=== PATIENT | female | born 1990 | race Caucasian/White ===

== ENCOUNTER 2021-02-18 23:21 | Emergency (ER) | payer OTHER ==
[2021-02-19 00:15] LABS: BASOPHIL 0.3 % (0-2); EOSINOPHIL 0.7 % (0-5); HGB 13.3 g/dl (12.5-16.0); LYMPHOCYTE 11.6 % (15-48); MCH 32.2 pg (25.0-31.0); MCHC 33.3 g/dL (32.0-36.0); MCV 96.9 fL (78.0-100.0); MONOCYTE 5.9 % (0-12); MPV 10.5 fL (6.0-9.5); NEUTROPHIL 81.2 % (41-80); NRBC 0; PLT 241 K/uL (150-400); RBC 4.13 M/uL (4.20-5.40); RDW 12.3 % (11.5-14.0); WBC 13.6 K/uL (4.0-10.5)
[2021-02-19 00:31] LABS: BUN/CREAT RATIO (CALC) 12.6 RATIO; CREATININE 0.95 mg/dL (0.51-0.95); POTASSIUM 3.7 mmol/L (3.5-5.1)
[2021-02-19] MEDS ORDERED: MEDROL 4MG DOSEP4 MG PO (04:56)
[2021-02-19] MEDS ORDERED: CYCLOBENZAPRINE10 MG PO (04:56)
[2021-02-19] MEDS ORDERED: IBUPROFEN800 MG PO (04:56)
[2021-02-19] MEDS ORDERED: PERCOCET 7.5/321 TAB PO (04:56)
== END 2021-02-19 05:23 | disposition home or self-care (01) ==
LOC: FER 23:21
PROVIDERS: Emergency Medicine Emergency Medical Services
DX: S01.81XA Laceration without foreign body of other part of head, initial encounter (principal); S01.312A Laceration without foreign body of left ear, initial encounter; S10.93XA Contusion of unspecified part of neck, initial encounter; M25.511 Pain in right shoulder; F17.200 Nicotine dependence, unspecified, uncomplicated; Z88.0 Allergy status to penicillin; Y04.2XXA Assault by strike against or bumped into by another person, initial encounter; Y92.009 Unspecified place in unspecified non-institutional (private) residence as the place of occurrence of the external cause
CPT/HCPCS: 36415; 70450; 70486; 70491; 71045; 73030; 80048; 85025; J1100; J1170; J1885; J2405; J3010; Q9967